=== PATIENT | male | born 1990 | race African-American/Black ===

== ENCOUNTER 2019-05-23 12:04 | Emergency (ER) | payer MEDICAID ==
[~2019-05-23] VITALS: Ht 180.3 cm; Wt 81.6 kg
[2019-05-23 12:31] VITALS: BP_SYST 125
--- NOTE | 2019-05-23 14:00 | NUR ---
Placed in chair 1. MSE completed by myself.
--- NOTE | 2019-05-23 14:02 | NUR ---
Note deepcayden in EDM - 05/23/19 at 1530 by [email or web address] Pt brought by Tracey hansen, pt presents to ER with R hand hand after punching an object, skin pink and warm, cap refill <3, VSS, respirations even and unlabored, no open wounds noted.
--- NOTE | 2019-05-23 14:05 | NUR ---
Pt brought by friend, A&Ox4, pt presents to ER with R hand pain after he punched an object, skin pink and warm, cap refill <3, VSS.
[2019-05-23] MEDS ORDERED: IBUPROFEN 800 MG TABLET PO ONE (14:15)
--- NOTE | 2019-05-23 14:15 | NUR ---
Dr Dewitt at bedside examining patient
[2019-05-23 15:25] VITALS: BP_SYST 125
--- NOTE | 2019-05-23 15:30 | NUR ---
Patient given written and verbal discharge instructions and verbalizes understanding. ER MD discussed with patient the results and treatment provided. Patient in stable condition. ID arm band removed. Rx of Motrin given. Patient educated on pain management and to follow up with PMD. Pain Scale 3/10 tolerable for patient . Opportunity for questions provided and answered. Medication side effect fact sheet provided.
== END 2019-05-23 15:25 | disposition home or self-care (01) ==
LOC: SED 12:04
DX: S62.306A Unspecified fracture of fifth metacarpal bone, right hand, initial encounter for closed fracture (principal); R03.0 Elevated blood-pressure reading, without diagnosis of hypertension; W22.8XXA Striking against or struck by other objects, initial encounter; Y93.89 Activity, other specified; Y92.89 Other specified places as the place of occurrence of the external cause; Y99.8 Other external cause status
CPT/HCPCS: 99283